=== PATIENT | female | born 1950 | race American Indian/Alaskan Native ===

== ENCOUNTER 2016-07-23 03:20 | Emergency (ER) | payer MEDICARE, OTHER ==
[2016-07-23] MEDS ORDERED: KEPPRA 1,000 MG/NS 0.75% 100ML 100 ML IV ONE ×2 (03:56→04:12)
[2016-07-23] MEDS: KEPPRA 1,000 MG in D5W 100 ML IV ONE ×2 (04:05→05:14)
[2016-07-23 04:26] LABS: Hematocrit 31.5 % (30.3-42.9); Hemoglobin 10.2 gm/dl (10.1-14.3); Mean Corpuscular HGB Conc 32 % (30-34); Mean Corpuscular Hemoglobin 34 pg (28-32); Mean Corpuscular Volume 105 fl (79-97); Red Blood Count 2.99 M/mm3 (3.65-5.03); Red Cell Distribution Width 13.6 % (13.2-15.2)
[2016-07-23 04:46] LABS: Alanine Aminotransferase 30 units/L (7-56); Albumin 2.7 g/dL (3.9-5); Albumin/Globulin Ratio 0.8 %; Alkaline Phosphatase 98 units/L (35-129); Bilirubin,Total 0.7 mg/dL (0.1-1.2); Blood Urea Nitrogen 5 mg/dL (7-17); Calcium 7.3 mg/dL (8.4-10.2); Carbon Dioxide 23 mmol/L (22-30); Chloride 105.7 mmol/L (98-107); Glucose 102 mg/dL (65-100); Potassium 3.4 mmol/L (3.6-5.0); Sodium 141 mmol/L (137-145); Total Protein 6.3 g/dL (6.3-8.2)
[2016-07-23 04:47] LABS: Anion Gap 16 mmol/L; INR 1.44 (0.87-1.13)
[2016-07-23 04:48] LABS: Partial Thromboplastin Time 38.8 Sec. (24.2-36.6)
[2016-07-23 05:09] LABS: Platelet Count 40 K/mm3 (140-440)
[2016-07-23] MEDS ORDERED: CALCIUM GLUCONATE 1,000 MG in NACL 0.9% 100 ML IV ONE (06:18)
--- NOTE | 2016-07-23 06:53 | Emergency Department Report ---
HPI - General Chief Complaint: Seizure Time Seen by Provider: 07/23/16 06:14 - HPI HPI: The patient is a 66-year-old female with a history of epilepsy and cirrhosis, whom presents for evaluation of seizure activity. The patient arrives with . They report that yesterday afternoon greater than 12 hours prior to my evaluation, the patient experienced seizure-like activity. The patient states that her symptoms were severe, lasting for minutes, and associated with postictal confusion. The patient denies fever, head injury, headache, finding of the tongue, urine or bowel incontinence, neck pain, neck stiffness, vision or hearing changes, smell or taste changes, paresthesias, facial drooping, slurred speech, or other focal neurological deficit. ED Past Medical Hx - Past Medical History Previous Medical History?: Yes Hx Hypertension: Yes Hx GERD: Yes Hx Liver Disease: Yes (CIRRHOSIS) Hx Arthritis: Yes Hx Seizures: Yes Additional medical history: Thrombocytopenia, leukopenia, breast cancer, THYROID ? - Surgical History Hx Cholecystectomy: Yes Hx Breast Surgery: Yes - Social History Smoking Status: Unknown if ever smoked - Medications Home Medications: Home Medications Medication Instructions Recorded Confirmed Last Taken Type Latanoprost 0.005% 1 drop OU DAILY 05/22/15 07/23/16 1 Day Ago History 1 Levothyroxine [Synthroid] 50 mcg PO DAILY 05/22/15 07/23/16 1 Day Ago History 50 Rifaximin [Xifaxan] 550 mg PO BID #30 tablet 06/09/15 07/23/16 1 Day Ago Rx 550 Lactulose 10 gm PO TID #100 ml 09/10/15 07/23/16 1 Day Ago Rx 10 Topiramate [Topamax] 50 mg PO QHS 09/10/15 07/23/16 1 Day Ago History 25 Esomeprazole Magnesium [NexIUM] 40 mg PO DAILY 03/13/16 07/23/16 Unknown History ED Review of Systems ROS: Stated complaint: SEIZURE Other details as noted in HPI Constitutional: denies: fever ENT: denies: throat or neck pain Respiratory: denies: cough, shortness of breath Cardiovascular: denies: chest pain Endocrine: denies unexplained weight loss or gain Gastrointestinal: denies: abdominal pain, nausea Genitourinary: denies: dysuria Musculoskeletal: denies: leg swelling Skin: denies: rash Neurological: reports seizure denies: headache Hematological/Lymphatic: denies: easy bleeding or easy bruising Psych: denies sadness or hopelessness Physical Exam - Physical Exam Vital Signs: Vital Signs 07/23/16 07/23/16 03:48 05:22 Temperature 97.8 F Pulse Rate 103 H Respiratory 20 Rate Blood Pressure 141/76 O2 Sat by Pulse 100 99 Oximetry Physical Exam: General: well-nourished, well-developed, no acute distress Head: Normocephalic, atraumatic Eyes: normal sclera ENT: Mucous membranes are pink and moist Neck: trachea midline, neck supple, No neck stiffness, no cervical adenopathy Respiratory: Breath sounds equal bilaterally, no wheezing, rales, or rhonchi Cardio: S1 and S2 present, no murmurs, rubs, gallops, capillary refill is brisk Abdomen: Normoactive bowel sounds, soft abdomen, no rigidity, no guarding or rebound tenderness Musc: No pitting edema Skin: No rash Neuro: Alert oriented 3, no pronator drift, no slurred speech, no obvious gross sensation or motor deficit in the arms or less, reflexes 2+ symmetric on DTR testing, no coordination deficit with finger to nose testing, no obvious gross neuro deficits Psych: Normal affect ED Course Vital Signs 07/23/16 07/23/16 03:48 05:22 Temperature 97.8 F Pulse Rate 103 H Respiratory 20 Rate Blood Pressure 141/76 O2 Sat by Pulse 100 99 Oximetry ED Medical Decision Making - Lab Data Result diagrams: 07/23/16 04:10 07/23/16 04:10 - Medical Decision Making The patient was seen and examined by myself. The patient is placed on a cardiac cath rn and continuous pulse ox. On initial evaluation, the patient was found to be in no distress. Evaluation orders were placed. The patient is given 1 g of IV Keppra. Lab results reveal low albumin level of 2.7, low serum calcium level of 7.3, although pseudohypocalcemia as corrected calcium level for hypoalbuminemia is 8.3, and otherwise lab results were at patient baseline on previous evaluations. The patient was reevaluated and reported that she felt back to her normal baseline. She states that she is asymptomatic and would like to go home. The patient has remained without any seizure-like activity throughout my evaluation, greater than 2 hours. On reexamination the patient remains without any neuro deficits and the patient is stable for discharge with outpatient follow-up. The patient is given follow-up and return instructions. The patient expressed understanding and agreed with the plan. The patient is discharged in stable condition. Critical care attestation.: If time is entered above; I have spent that time in minutes in the direct care of this critically ill patient, excluding procedure time. ED Disposition Clinical Impression: Seizure disorder, Thrombocytopenia Disposition: DISCHARGED TO HOME OR SELFCARE Is pt being admited?: No Does the pt Need Aspirin: No Condition: Stable Instructions: Epilepsy (ED) Referrals: PRIMARY CARE, [Primary Care Provider] - 3-5 Days Time of Disposition: 06:37
[2016-07-23 09:22] VITALS: BP 133/72
== END 2016-07-23 09:15 | disposition home or self-care (01) ==
LOC: ED 03:20
DX: G40.909 Epilepsy, unspecified, not intractable, without status epilepticus (principal); D69.6 Thrombocytopenia, unspecified; I10 Essential (primary) hypertension; K21.9 Gastro-esophageal reflux disease without esophagitis; M19.90 Unspecified osteoarthritis, unspecified site; K74.60 Unspecified cirrhosis of liver; Z90.49 Acquired absence of other specified parts of digestive tract
CPT/HCPCS: 36415; 80053; 82140; 82550; 85027; 85610; 85730; 96365; 96366; 96375; 99284; J0610; J1953

== ENCOUNTER 2017-08-14 04:53 | Emergency (ER) | payer MEDICARE, OTHER ==
[2017-08-14 07:48] LABS: Hematocrit 40.2 % (30.3-42.9); Hemoglobin 13.1 gm/dl (10.1-14.3); Mean Corpuscular HGB Conc 33 % (30-34); Mean Corpuscular Hemoglobin 34 pg (28-32); Mean Corpuscular Volume 105 fl (79-97); Red Blood Count 3.84 M/mm3 (3.65-5.03); Red Cell Distribution Width 13.3 % (13.2-15.2)
[2017-08-14 07:54] LABS: Platelet Count 47 K/mm3 (140-440)
[2017-08-14 07:58] LABS: BUN/Creatinine Ratio 13; Blood Urea Nitrogen 8 mg/dL (7-17); Calcium 8.1 mg/dL (8.4-10.2); Hemolysis Index 8
[2017-08-14 09:11] VITALS: BP 99/57
--- NOTE | 2017-08-14 10:01 | Emergency Department Report ---
HPI - General Chief Complaint: Seizure Time Seen by Provider: 08/14/17 08:41 - HPI HPI: The patient is a 67-year-old female with a history of epilepsy, chronic liver disease, and hyperammonemia, who presents for evaluation of seizure-like activity. Per EMS, the patient's family members reported that the patient was found with shaking and jerking of the extremities and altered mental status at 2 AM this morning, greater than 6 hours prior to my evaluation. The patient states that she does not recall the event. She complains of mild generalized fatigue, exacerbated with activity and improved at rest. She admits to not taking seizure medication last night before sleep. She shares that her last seizure was one year ago. The patient denies fever, head injury, headache, neck pain, neck stiffness, vision or hearing changes, smell or taste changes, paresthesias, facial drooping, slurred speech, urine or bowel incontinence or retention, or other focal neurological deficit. ED Past Medical Hx - Past Medical History Previous Medical History?: Yes Hx Hypertension: Yes Hx GERD: Yes Hx Liver Disease: Yes (CIRRHOSIS) Hx Arthritis: Yes Hx Seizures: Yes Additional medical history: Thrombocytopenia, leukopenia, breast cancer, THYROID ? - Surgical History Past Surgical History?: Yes Hx Cholecystectomy: Yes Hx Breast Surgery: Yes (left) - Social History Smoking Status: Never Smoker Substance Use Type: None - Medications Home Medications: Home Medications Medication Instructions Recorded Confirmed Last Taken Type Latanoprost 0.005% 1 drop OU DAILY 05/22/15 07/23/16 1 Day Ago History ~11/18/15 1 Levothyroxine [Synthroid] 50 mcg PO DAILY 05/22/15 07/23/16 1 Day Ago History ~11/18/15 50 Lactulose 10 gm PO TID #100 ml 09/10/15 07/23/16 1 Day Ago Rx ~11/18/15 10 Topiramate [Topamax] 50 mg PO QHS 09/10/15 07/23/16 1 Day Ago History ~11/18/15 25 Esomeprazole Magnesium [NexIUM] 40 mg PO DAILY 03/13/16 07/23/16 Unknown History Rifaximin [Xifaxan] 550 mg PO BID #30 tablet 08/14/17 Unknown Rx ED Review of Systems ROS: Stated complaint: SEIZURE/AMS Other details as noted in HPI Constitutional: reports tiredness denies: fever ENT: denies: throat or neck pain Respiratory: denies: cough, shortness of breath Cardiovascular: denies: chest pain Endocrine: denies unexplained weight loss or gain Gastrointestinal: denies: abdominal pain, nausea Genitourinary: denies: dysuria Musculoskeletal: denies: leg swelling Skin: denies: rash Neurological: seizure reported (per family members) denies: headache Hematological/Lymphatic: denies: easy bleeding or easy bruising Psych: denies sadness or hopelessness Physical Exam - Physical Exam Vital Signs: Vital Signs 08/14/17 08/14/17 08/14/17 06:17 09:06 09:09 Temperature 98.2 F 98.5 F Pulse Rate 97 H 90 Respiratory 14 20 18 Rate Blood Pressure 127/69 Blood Pressure 127/69 99/57 [Right] O2 Sat by Pulse 98 97 97 Oximetry Physical Exam: General: well-nourished, well-developed, no acute distress Head: Normocephalic, atraumatic Eyes: normal sclera, PERRL, EOM intact ENT: Mucous membranes are pale and dry Neck: No neck stiffness, no cervical adenopathy Respiratory: Breath sounds equal bilaterally, no wheezing, rales, or rhonchi Cardio: S1 and S2 present, no murmurs, rubs, gallops, capillary refill is delayed Abdomen: Normoactive bowel sounds, soft abdomen, no rigidity, no guarding or rebound tenderness Chest WALL/Back: No tenderness to palpation of the chest wall, no CVA tenderness with percussion Musc: No pitting edema Skin: No rash Neuro: alert oriented x4, normal cognition, speech normal, no facial drooping, no uvula or tongue deviation on protrusion, no deficit with rotation of neck or shoulder shrug, no obvious gross motor deficit in the upper or lower extremities with flexion or extension at the shoulder, elbow, wrist, hip, knee, or ankle bilaterally, no obvious gross sensation deficit to crude touch or 2 pt discrimination, 2+ symmetric reflexes on DTR testing, no coordination deficit with [id number]-[id number] or [id number]-[id number] testing, Babinski downgoing Psych: Normal affect ED Course Vital Signs 08/14/17 08/14/17 08/14/17 06:17 09:06 09:09 Temperature 98.2 F 98.5 F Pulse Rate 97 H 90 Respiratory 14 20 18 Rate Blood Pressure 127/69 Blood Pressure 127/69 99/57 [Right] O2 Sat by Pulse 98 97 97 Oximetry ED Medical Decision Making - Lab Data Result diagrams: 08/14/17 07:19 08/14/17 07:19 - Medical Decision Making The patient was seen and examined by myself. The patient is placed on a kier operator and continuous pulse ox. On initial evaluation, the patient was found to be in no distress. Evaluation orders were placed. Lab results revealed mildly elevated ammonia level of 70, at baseline for patient, and otherwise labs were unremarkable. As patient is alert and oriented 3, has no alteration in mental status on reevaluation, there is no concern for hepatic encephalopathy at this time. The patient will be given a prescription for rifaximin for treatment of hyperammonemia. The patient was observed in the emergency department for greater than 5 hours without any seizure activity. The patient was reevaluated and reported that their symptoms were markedly improved. The patient is stable for discharge with outpatient follow-up. The patient is given follow-up and return instructions. The patient expressed understanding and agreed with the plan. The patient is discharged in stable condition. Critical care attestation.: If time is entered above; I have spent that time in minutes in the direct care of this critically ill patient, excluding procedure time. ED Disposition Clinical Impression: Seizure disorder, Dehydration, mild, Hyperammonemia Disposition: TO HOME OR SELFCARE Is pt being admited?: No Does the pt Need Aspirin: No Condition: Stable Instructions: Epilepsy (ED) Prescriptions: Rifaximin [Xifaxan] 550 mg PO BID #30 tablet Referrals: RAMÓN GARRISON MD [Primary Care Provider] - 3-5 Days Time of Disposition: 10:01
== END 2017-08-14 11:14 | disposition home or self-care (01) ==
LOC: ED 04:53
DX: G40.909 Epilepsy, unspecified, not intractable, without status epilepticus (principal); E86.0 Dehydration; E72.20 Disorder of urea cycle metabolism, unspecified; I10 Essential (primary) hypertension; K21.9 Gastro-esophageal reflux disease without esophagitis
CPT/HCPCS: 36415; 80048; 82140; 85027

== ENCOUNTER 2020-11-24 10:29 | Outpatient (CLI) | payer MEDICARE, OTHER ==
--- NOTE | 2020-11-24 13:43 | XRay Report ---
Pelvis one view INDICATION: Pain FINDINGS: Advanced degenerative change left hip. There is subchondral sclerosis within the femoral he ad which could represent avascular necrosis or degenerative change. Large osteophyte at the femoral h ead neck junction. Moderate degenerative change in right hip. Sacrum and sacroiliac joints appear nor mal. Bilateral knees one view INDICATION: Pain FINDINGS: Degenerative change with joint space and medial compartment right greater than left. Chondr ocalcinosis and lateral joint space. Left hip 3 views INDICATION: Degenerative change FINDINGS: Advanced degenerative change in left hip. Subchondral sclerosis in the acetabulum and femor al head. No subchondral collapse. Signer Name: Chavo Perry MD Signed: 11/24/2020 1:39 PM Workstation Name: [id number]
== END 2020-11-24 10:30 | disposition home or self-care (01) ==
LOC: XRAY 10:29
PROVIDERS: ATTEND Orthopaedic Surgery
DX: M17.0 Bilateral primary osteoarthritis of knee (principal); M16.12 Unilateral primary osteoarthritis, left hip
CPT/HCPCS: 72170; 73565

== ENCOUNTER 2021-01-11 13:29 | Outpatient (CLI) | payer MEDICARE, OTHER ==
--- NOTE | 2021-01-11 15:20 | Mammography Report ---
DIGITAL SCREENING MAMMOGRAM WITH TOMOSYNTHESIS WITH CAD, 01/11/2021 CLINICAL INFORMATION / INDICATION: Screening TECHNIQUE: Digital right 2D and 3D mammography with tomosynthesis was obtained in the craniocaudal a nd mediolateral oblique projections. Computer-Aided Detection (CAD) analysis was used for interpreta tion of this study. COMPARISON: 06/24/2019 FINDINGS: Breast Density: There are scattered areas of fibroglandular density. No dominant mass, suspicious calcifications, or architectural distortion in either breast. Benign-appearing calcifications are again seen. IMPRESSION: No mammographic evidence of malignancy. Follow up recommendation: Routine yearly BI-RADS Category 2: Benign. A "normal" or negative report should not discourage follow up or biopsy of a clinically significant f inding. A written summary of these findings will be mailed to the patient. The patient will be entered into a mammography reporting system which will generate a reminder letter for the patient's next appointmen t at the appropriate interval. The [employer] recommends yearly mammograms starting at age 40 and continuing as l orlin as a woman is in good health. Breast MRI is recommended for women with an approximate 20-25% or greater lifetime risk of breast cancer, including women with a strong family history of breast or ova buzz cancer or who have been treated for Hodgkin's disease. Signer Name: Timmy Lamar MD Signed: 01/11/2021 3:15 PM Workstation Name: [id number]
== END 2021-01-11 13:30 | disposition home or self-care (01) ==
LOC: SPVWC 13:29
PROVIDERS: ATTEND Surgery
DX: Z12.31 Encounter for screening mammogram for malignant neoplasm of breast (principal); N64.89 Other specified disorders of breast
CPT/HCPCS: 77063